=== PATIENT | male | born 2000 | race Caucasian/White ===

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

== ENCOUNTER 2021-07-05 01:10 | Emergency (ER) | payer MEDICAID ==
[~2021-07-05] VITALS: Ht 177.8 cm; Wt 131.5 kg
[2021-07-05 01:34] VITALS: BP_SYST 151
[2021-07-05] MEDS ORDERED: KETOROLAC TROMETHAMINE 60 MG/2 ML VIAL IM ONE (02:15)
[2021-07-05] MEDS ORDERED: MORPHINE 4 MG INJ. 4 MG/ML VIAL IM ONE (02:15)
[2021-07-05] MEDS ORDERED: CYCL10TA24 PO (03:32)
[2021-07-05] MEDS ORDERED: NAPR-1172 PO (03:32)
[2021-07-05 03:50] VITALS: BP_SYST 130
== END 2021-07-05 03:55 | disposition home or self-care (01) ==
LOC: SED 01:10
DX: M54.50 Low back pain, unspecified (principal)
CPT/HCPCS: 96372; 99284; J1885; J2270

== ENCOUNTER 2021-07-12 13:12 | Emergency (ER) | payer MEDICAID ==
[~2021-07-12] VITALS: Ht 177.8 cm; Wt 127.0 kg
[2021-07-12 13:12] VITALS: BP_SYST 182
[~2021-07-12 13:12] MED LIST: CYCL10TA24 PO; NAPR-1172 PO
--- NOTE | 2021-07-12 13:12 | NUR ---
ASSISTED OUT OF CAR TO WHEELCHAIR, BROUGHT BACK TO BED #6 AND TRIAGED. REPORT GIVEN TO ROXANA
--- NOTE | 2021-07-12 13:20 | NUR ---
RECEIVED PATIENT IN BED 6, NAD, VSS, PAIN TO RIGHT LEG RADIATING DOWN PAST KNEE. PMD PROVIDED IBUPROFEN, NAPROXEN, AND PAIN GEL. PT IS STABLE, AWAITING ADDITIONAL ASSESSMENTS WITH PLAN OF CARE.
--- NOTE | 2021-07-12 13:20 | NUR ---
ED MD AT BEDSIDE FOR CUSTOMER COUNTER REPRESENTATIVE
[2021-07-12] MEDS ORDERED: LIDOCAINE 1% 10 MG/ML, 20 ML MDV SUBCUT ONE (13:30)
[2021-07-12] MEDS ORDERED: LIDOCAINE 1%, 20 ML MDV 20 ML ONE (13:30)
[2021-07-12] MEDS ORDERED: DIAZEPAM 5 MG TABLET (VALIUM) PO ONE (13:30)
[2021-07-12] MEDS ORDERED: MORPHINE 4 MG INJ. 4 MG/ML VIAL IM ONE ×2 (13:30→14:30)
--- NOTE | 2021-07-12 15:00 | NUR ---
PT STABLE, NAD, VSS, PAIN IMPROVED FROM MORPHINE, AWAITING ADDITIONAL EXAMS AND DISPOSITION WITH PLAN OF CARE.
[2021-07-12 16:00] VITALS: BP_SYST 151
[2021-07-12] MEDS ORDERED: NAPR-690 PO (16:24)
--- NOTE | 2021-07-12 16:25 | NUR ---
Patient given written and verbal discharge instructions and verbalizes understanding. ER MD discussed with patient the results and treatment provided. Patient in stable condition. ID arm band removed. IV catheter removed intact and dressing applied, no active bleeding. Patient educated on pain management and to follow up with PMD. Opportunity for questions provided and answered. Medication side effect fact sheet provided.
== END 2021-07-12 16:25 | disposition home or self-care (01) ==
LOC: SED 13:12
DX: M79.604 Pain in right leg (principal)
CPT/HCPCS: 20553; 96372; 99284; J2001; J2270

== ENCOUNTER 2023-06-28 19:17 | Emergency (ER) | payer MEDICAID ==
[~2023-06-28] VITALS: Ht 177.8 cm; Wt 127.0 kg
[~2023-06-28 19:17] MED LIST changes: +NAPR-690 PO
[2023-06-28 19:32] VITALS: BP_SYST 150; PULSE 111; RESP 18; TEMP 98.4; O2SAT 98
[2023-06-29] MEDS ORDERED: LIDOCAINE 1% 10 MG/ML, 20 ML MDV INJ ONE
[2023-06-29 00:45] VITALS: BP_SYST 140; PULSE 102; RESP 18; TEMP 98.4; O2SAT 98
== END 2023-06-29 00:44 | disposition home or self-care (01) ==
LOC: SED 19:17
DX: S10.95XA Superficial foreign body of unspecified part of neck, initial encounter (principal); Z98.890 Other specified postprocedural states; Z79.899 Other long term (current) drug therapy; X58.XXXA Exposure to other specified factors, initial encounter; Y93.89 Activity, other specified; Y92.89 Other specified places as the place of occurrence of the external cause; Y99.8 Other external cause status
CPT/HCPCS: 88304; 99285